=== PATIENT | male | born 2000 | race African-American/Black ===

== ENCOUNTER → 2021-04-30 | Emergency (ER) | payer OTHER ==
[~2021-04-30] VITALS: Ht 182.9 cm; Wt 119.7 kg
[~2021-04-30] MED LIST: IBUP-1955 PO; IBUPROFEN 600 MG TABLET ONE; IBUPROFEN 600 MG TABLET PO ONE
--- NOTE | 2021-04-30 21:00 | NUR ---
PATIENT DISCHARGED IN STABLE CONDITION
[2021-04-30 21:04] VITALS: BP 136/77
== END | disposition home or self-care (01) ==
LOC: ER 18:24
DX: M25.512 Pain in left shoulder (principal); M25.531 Pain in right wrist; Z88.0 Allergy status to penicillin; V49.49XA Driver injured in collision with other motor vehicles in traffic accident, initial encounter; Y93.89 Activity, other specified; Y92.413 State road as the place of occurrence of the external cause; Y99.8 Other external cause status
CPT/HCPCS: 70450-TC; 72125-TC; 73030-TC